=== PATIENT | female | born 1995 | race Caucasian/White ===

== ENCOUNTER 2016-11-25 20:43 | Emergency (ER) | payer OTHER ==
[~2016-11-25] VITALS: Ht 162.6 cm; Wt 77.5 kg
[2016-11-25 20:46] VITALS: Ht 162.6 cm; Wt 77.5 kg
[2016-11-25] MEDS ORDERED: LORAZEPAM 1 MG TAB PO ONE (22:00)
--- NOTE | 2016-11-25 22:51 | RADRPT ---
PROCEDURE: XR Chest. CLINICAL INDICATION: Chest pain TECHNIQUE: AP Portable chest. COMPARISON: No pertinent prior examinations were submitted for comparison. FINDINGS: The cardiomediastinal silhouette is normal. The lungs are clear. The osseous structures are unrema rkable. IMPRESSION: No acute findings. RPTAT: HIKT .Kevin Almeida MD, MD Date Time Electronically viewed and signed by .Kevin Almeida MD, MD on 11/25/2016 22:50 .T/
[2016-11-25] MEDS ORDERED: LORA-441 PO (23:02)
[2016-11-25 23:24] VITALS: BP 109/69; PULSE 67; RESP 20; TEMP 99
--- NOTE | 2016-11-26 | ERD ---
ER Documentation Chief Complaint Date/Time DATE: 11/25/16 TIME: 23:56 Chief Complaint chest wall pain w/ palpitation today, anxiety HPI This patient is a 21-year-old female presenting to the emergency department with complaints of chest wall pain, palpitations, and feelings of anxiety ongoing intermittently for the past 3 months. She states this morning she felt her upper extremities tingling, felt a palpitation, and also felt anxious. This lasted for approximately 1-2 minutes and then resolved. She also reported shortness of breath. She was crying at the time. Her last menstrual cycle was 11-06-2016. The patient does not mention any suicidal or homicidal ideation. She denies fevers, chills, dizziness, syncope, or other symptoms currently. ROS All systems reviewed and are negative except as per history of present illness. Medications Home Meds Active Scripts Lorazepam* (Ativan*) 0.5 Mg Tablet, 0.5 MG PO Q8, #10 TAB Prov:RAISA DARNELL PA-C 11/25/16 Allergies Allergies: Coded Allergies: No Known Allergy (Unverified , 11/25/16) PMhx/Soc History of Surgery: No Hx Neurological Disorder: No Hx Respiratory Disorders: No Hx Cardiac Disorders: No Hx Psychiatric Problems: Yes (ANXIETY) Hx Miscellaneous Medical Probl: Yes (GERD) Hx Alcohol Use: Yes (OCCASSIONAL) Hx Substance Use: No Hx Tobacco Use: No Smoking Status: Never smoker Physical Exam Vitals Vital Signs Date Time Temp Pulse Resp B/P Pulse Ox O2 Delivery O2 Flow Rate FiO2 11/25/16 23:24 99.0 67 20 109/69 100 Room Air 11/25/16 20:46 99.0 122 20 141/77 100 Physical Exam Const: Nontoxic, slightly anxious appearing female. Head: Atraumatic Eyes: Normal Conjunctiva ENT: Normal External Ears, Nose and Mouth. Neck: Full range of motion..~ No meningismus. Resp: Clear to auscultation bilaterally Cardio: Regular rate and rhythm, no murmurs Abd: Soft, non tender, non distended. Normal bowel sounds Skin: No petechiae or rashes Back: No midline or flank tenderness Ext: No cyanosis, or edema Neur: Awake and alert Psych: Normal Mood and anxious affect. Results 24 hrs Current Medications Medications (Trade) Dose Ordered Sig/Wili Route PRN Reason Start Time Stop Time Status Last Admin Dose Admin Lorazepam (Ativan) 1 mg ONCE ONCE PO 11/25/16 22:00 11/25/16 22:01 DC 11/25/16 22:01 [place] [id number] Radiology Main Line: [phone] DIAGNOSTIC IMAGING REPORT Patient: BISHOP RICHMOND : 1995 Age: 21 Sex: F MR #: [id number] DOS: 11/25/16 0000 Ordering MD: RAISA DARNELL PA-C Location: [facility] Room/Bed: PROCEDURE: XR Chest. CLINICAL INDICATION: Chest pain TECHNIQUE: AP Portable chest. COMPARISON: No pertinent prior examinations were submitted for comparison. FINDINGS: The cardiomediastinal silhouette is normal. The lungs are clear. The osseous structures are unremarkable. IMPRESSION: No acute findings. RPTAT: HIKT .Kevin Almeida MD, MD Date Time Electronically viewed and signed by .Kevin Almeida MD, MD on 11/25/2016 22:50 .T/ CC: RAISA DARNELL PA-C Procedures/MDM 21-year-old female presents to the emergency department secondary to complaints of anxiety. On physical examination the patient does have an anxious affect and she is tearful. She is consolable. She denies any homicidal or suicidal ideation. She was treated in the department with 1 mg p.o. Ativan and was feeling much improved on reevaluation. Chest x-ray was negative for acute findings and interpreted by the radiologist. The patient is stable for outpatient management with a prescription for Ativan. The patient's anxiety symptoms are stabilized within the department. She was not feeling any palpitations or chest pain or shortness of breath upon discharge. She is to have very close follow-up with the primary care physician. I will give her a short course of 10 tablets of Ativan to be utilized only for acute anxiety attacks. She was advised to follow-up with a psychiatrist. Strict ER return precautions were discussed and the patient demonstrated good understanding. The patient was discharged with her mother, who is supporting her through the anxiety. EKG: Interpreted by Dr. Brian Rob, supervising ED physician. Rate/Rhythm: Sinus rhythm with a rate of 75 bpm. QRS, ST, T-waves: No changes consistent w/ acute ischemia Impression: No evidence of ischemia or arrhythmia Departure Diagnosis: Primary Impression: Anxiety reaction Condition: Fair Patient Instructions: Your Body's Response to Anxiety, Anxiety Reaction Additional Instructions: Follow up with your PCP within the next 1-3 days for a repeat evaluation and a possible referral to a specialist, if required. Return the the emergency department immediately if symptoms worsen or change. If you have any questions regarding medications, ask your pharmacist or us before you leave. If any adverse reactions, occur while taking your medications, discontinue the treatment and return to the emergency department immediately. If any new or worsening symptoms, uncontrolled fevers, or other unexplained symptoms occur, return to the emergency department immediately. Take your medications as directed, and complete the entire course of treatment. RAISA DARNELL PA-C Nov 25, 2016 23:59
== END 2016-11-25 23:26 | disposition home or self-care (01) ==
LOC: FTE 20:43
DX: F41.1 Generalized anxiety disorder (principal)
CPT/HCPCS: 71010; 93005; Z7502; Z7610

== ENCOUNTER 2019-01-04 19:48 | Emergency (ER) | payer BC, OTHER ==
[~2019-01-04] VITALS: Ht 162.6 cm; Wt 78.9 kg
[~2019-01-04 19:48] MED LIST: IBUP-1542 PO; LORA-441 PO
[2019-01-04 19:51] VITALS: Ht 162.6 cm; Wt 78.9 kg
[2019-01-04] MEDS ORDERED: IBUPROFEN 600 MG TAB PO ONE (21:00)
[2019-01-04] MEDS ORDERED: LORAZEPAM 1 MG TAB PO ONE (21:00)
--- NOTE | 2019-01-04 21:04 | ERD ---
ER Documentation Chief Complaint Chief Complaint PARSONS AND NUMBNESS LEFT ARM X TODAY. HPI This is a 23-year-old female presenting to the emergency department complaining of tingling to her left arm which began 40 minutes prior to my examination. She also reports sharp pain to her left chest wall which radiates to her left shoulder. She has also had some shooting pains to her right neck going all the way up to the parietal region of her head. Her current pain level is rated 4/10 in severity. She denies any significant dizziness, syncope, abdominal pain, fevers, chills, nausea, vomiting, or diarrhea. She denies any photophobia, phonophobia, neck pain or neck stiffness. Symptoms began while she was at work. 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 She does have past medical history of anxiety but was never treated with medication. She does not report any homicidal or suicidal ideation. No other symptoms reported at this time. ROS All systems reviewed and are negative except as per history of present illness. Medications Home Meds Active Scripts Ibuprofen* (Motrin*) 600 Mg Tab, 600 MG PO Q6, #30 TAB Prov:RAISA DARNELL PA-C 01/04/19 Lorazepam* (Ativan*) 0.5 Mg Tablet, 0.5 MG PO Q8, #10 TAB Prov:RAISA DARNELL PA-C 11/25/16 Allergies Allergies: Coded Allergies: No Known Allergy (Unverified , 11/25/16) PMhx/Soc History of Surgery: No Hx Neurological Disorder: No Hx Respiratory Disorders: No Hx Cardiac Disorders: No Hx Psychiatric Problems: Yes (ANXIETY) Hx Miscellaneous Medical Probl: Yes (GERD) Hx Alcohol Use: Yes (OCCASSIONAL) Hx Substance Use: No Hx Tobacco Use: No FmHx Family History: No diabetes Physical Exam Vitals Vital Signs Date Temp Pulse Resp B/P (MAP) Pulse Ox O2 O2 Flow FiO2 Time Delivery Rate 01/04/19 98.3 75 16 116/62 100 Room Air 21:49 (80) 01/04/19 97.6 66 16 123/67 97 19:51 (85) Physical Exam Const: No acute distress Head: Atraumatic Eyes: Normal Conjunctiva ENT: Normal External Ears, Nose and Mouth. Neck: Full range of motion. No meningismus. Negative Kernig and Brudzinski sign. Patient has full flexion and extension of the neck. Resp: Clear to auscultation bilaterally Cardio: Regular rate and rhythm, no murmurs. Tenderness palpation of the left chest wall. Abd: Soft, non tender, non distended. Normal bowel sounds. No rebound tenderness or guarding. No McBurney's point tenderness. Skin: No petechiae or rashes Back: No midline or flank tenderness. No midline tenderness. Ext: No cyanosis, or edema Neur: Awake and alert Psych: Normal Mood and Affect Result Diagram: 01/04/19205301/04/192053 Results 24 hrs Laboratory Tests Test 01/04/19 20:54 01/04/19 21:09 White Blood Count 13.0 10^3/ul Red Blood Count 4.89 10^6/ul Hemoglobin 13.8 g/dl Hematocrit 42.3 % Mean Corpuscular Volume 86.5 fl Mean Corpuscular Hemoglobin 28.2 pg Mean Corpuscular Hemoglobin Concent 32.6 g/dl Red Cell Distribution Width 12.2 % Platelet Count 307 10^3/UL Mean Platelet Volume 9.9 fl Immature Granulocytes % 0.200 % Neutrophils % 58.6 % Lymphocytes % 30.4 % Monocytes % 7.2 % Eosinophils % 3.1 % Basophils % 0.5 % Nucleated Red Blood Cells % 0.0 /100WBC Immature Granulocytes # 0.030 10^3/ul Neutrophils # 7.6 10^3/ul Lymphocytes # 3.9 10^3/ul Monocytes # 0.9 10^3/ul Eosinophils # 0.4 10^3/ul Basophils # 0.1 10^3/ul Nucleated Red Blood Cells # 0.0 10^3/ul Urine Color STRAW Urine Clarity CLEAR Urine pH 6.0 Urine Specific [place] 1.010 Urine Ketones NEGATIVE mg/dL Urine Nitrite NEGATIVE mg/dL Urine Bilirubin NEGATIVE mg/dL Urine Urobilinogen NEGATIVE mg/dL Urine Leukocyte Esterase NEGATIVE Yasmeen/ul Urine Hemoglobin NEGATIVE mg/dL Urine Glucose NEGATIVE mg/dL Urine Total Protein NEGATIVE mg/dl Sodium Level 139 mmol/L Potassium Level 4.3 mmol/L Chloride Level 104 mmol/L Carbon Dioxide Level 28 mmol/L Anion Gap 7 Blood Urea Nitrogen 15 mg/dl Creatinine 0.66 mg/dl Est Glomerular Filtrat Rate mL/min > 60 mL/min Glucose Level 100 mg/dl Calcium Level 9.6 mg/dl POC Beta HCG, Qualitative NEGATIVE Current Medications Medications Dose Sig/Wili Start Time Status Last (Trade) Ordered Route PRN Stop Time Admin Dose Reason Admin Lorazepam 1 mg ONCE ONCE 01/04/19 DC 01/04/19 (Ativan) PO 21:00 01/04/19 21:11 21:01 Ibuprofen 600 mg ONCE ONCE 01/04/19 DC 01/04/19 (Motrin) PO 21:00 01/04/19 21:11 21:01 [place] [id number] Radiology Main Line: [phone] DIAGNOSTIC IMAGING REPORT Patient: BISHOP RICHMOND : 1995 Age: 23 Sex: F MR #: [id number] DOS: 01/04/19 0000 Ordering MD: RAISA DARNELL PA-C Location: [facility] Room/Bed: PROCEDURE: XR Chest AP portable CLINICAL INDICATION: Chest pain TECHNIQUE: An AP portable radiograph of the chest was submitted. COMPARISON: 11/25/2016 FINDINGS: Support Hardware: None Cardiovascular: The cardiovascular silhouette appears unremarkable. Lung Singh: The lung singh and pleural spaces are clear. Pleural Spaces: No pneumothorax or pleural effusion is identified. Osseous Structures: The osseous structures appear intact. Soft Tissues: Unremarkable IMPRESSION: Stable portable chest without evidence of active cardiopulmonary disease. Physician Hong Date Time Electronically viewed and signed by Physician Hong on 01/04/2019 21:10 RH/ CC: RAISA DARNELL PA-C [phone] Procedures/MDM 23-year-old female presents emergency department complaining of headache, tingling to her left arm which began while at work prior to arrival. Differential diagnoses include migraine headache, tension headache, cluster headache, fibromyalgia, anxiety reaction, acute coronary syndrome, muscle strain, dehydration, and others. I have low suspicion for emergent process. Patient's vital signs are stable and she is nontoxic and well-appearing. She is afebrile. Physical examination is within normal limits. Chest x-ray and EKG are within normal limits. Patient shows no evidence of significant leukocytosis or anemia on CBC. CMP is within normal limits. Urinalysis is not concerning for infection. Urine negative. Head Ct Risks and Benefits: CT Scan of the head was discussed with all present and we agree at this time that a trial of watchful waiting is most appropriate. ED COURSE: Patient was improved after administration of ibuprofen and Ativan. EKG: Interpreted by ED physician. Rate/Rhythm: Normal Sinus Rhythm with a rate of 63 bpm. QRS, ST, T-waves: No changes consistent w/ acute ischemia Impression: No evidence of ischemia or arrhythmia Medical decision makin-year-old female presents with what appears to have been an anxiety attack. Patient is hemodynamically stable and well-appearing. Work-up is not concerning for emergent pathology. Patient will be discharged home in stable condition with strict return precautions. She was in agreement with the diagnosis, plan, need for follow-up, return precautions. She was advised to have 24 to 48-hour follow-up with her primary care physician. Departure Diagnosis: Primary Impression: Headache Additional Impression: Numbness and tingling in left arm Condition: Fair Patient Instructions: Self-Care for Headaches, Numbness Additional Instructions: Follow up with your PCP within the next 1-3 days for a repeat evaluation. If you require a referral to a specialist, your Primary Care Provider may be able to provide this for you. In most patient cases, a referral is not required. If you have further questions regarding this matter, please ask your Primary Care Provider. Return the the emergency department immediately if symptoms worsen or change. If you have any questions regarding medications, ask your pharmacist or us before you leave. If any adverse reactions, occur while taking your medications, discontinue the treatment and return to the emergency department immediately. If any new or worsening symptoms, uncontrolled fevers, or other unexplained symptoms occur, return to the emergency department immediately. Take your medications as directed, and complete the entire course of treatment. RAISA DARNELL PA-C Jan 04, 2019 21:04
[2019-01-04 21:49] VITALS: BP 116/62; PULSE 75; RESP 16
== END 2019-01-04 21:50 | disposition home or self-care (01) ==
LOC: FTE 19:48
DX: R51 Headache (principal); R20.0 Anesthesia of skin; R07.9 Chest pain, unspecified
CPT/HCPCS: 36415; 71045; 80048; 81003; 81025; 85025; 93005